=== PATIENT | male | born 1990 | race Caucasian/White ===

== ENCOUNTER 2018-11-02 22:14 | Emergency (ER) | payer OTHER ==
[~2018-11-02] VITALS: Ht 177.8 cm; Wt 61.4 kg
[2018-11-02 22:20] VITALS: BP 117/53; TEMP 98.2
[2018-11-02 23:11] VITALS: PULSE 74
== END 2018-11-02 23:12 | disposition home or self-care (01) ==
LOC: COL.ER 22:14
DX: S61.211A Laceration without foreign body of left index finger without damage to nail, initial encounter (principal); F32.9 Major depressive disorder, single episode, unspecified; F41.9 Anxiety disorder, unspecified; Z23 Encounter for immunization; W26.8XXA Contact with other sharp object(s), not elsewhere classified, initial encounter; Y92.410 Unspecified street and highway as the place of occurrence of the external cause